=== PATIENT | female | born 1995 ===

== ENCOUNTER 2022-08-18 13:54 | Outpatient (REF) | payer OTHER, SELFPAY ==
[2022-08-19 12:32] LABS: BV Int Neg Control Negative (Negative); BV Int Pos Control Positive (Positive)
== END 2022-08-18 13:55 | disposition home or self-care (01) ==
LOC: HO.LNP 13:54
PROVIDERS: Visit Provider Internal Medicine
DX: N89.8 Other specified noninflammatory disorders of vagina (principal)
CPT/HCPCS: 87480; 87510; 87660

== ENCOUNTER 2022-12-28 13:48 | Outpatient (AMB) | payer BC, SELFPAY ==
--- NOTE | 2022-12-28 13:54 | MHC.OFFWIV ---
Intake Vital Signs 12/28/22 13:55 Height 5 ft 7 in Weight 133.526 kg BMI 46.1 BP 134/74 Blood Pressure Location Lt brachial Position Sitting Pulse 99 Pulse Source Pulse Oximeter Temp 98 F Temp Source Temporal Artery Scan Pulse Oximetry (%) 99 Oxygen Delivery Method Room Air Intake Visit Reasons: EP ?Cut LT hand Intake Note: Pt is here c/o cut on left pointer finger. Pt cut herself with a knife at work on 12/27/22 Patient Tobacco Use Status: Current someday Tobacco user Allergies No Known Allergies Allergy (Verified 12/28/22 13:54) Do you need a note to return to daycare/school/sports/work: No HPI HPI Comments History of Present Illness Details 1400 27-year-old female presents with laceration to left pointer finger, accidental, patient accidentally cut herself at work with a knife. UTD on tetanus. Denies numbness, tingling, difficulty moving fingers, fevers, chills. Physical exam with a 1 cm superficial linear laceration to the lateral aspect of left pointer finger. Full painless range of motion to all fingers bilaterally capillary refill less than 2 seconds. No wrist drop. Normal sensation distally. Likely simple laceration. Unlikely neurovascular compromise, threat to Limb. No signs of foreign body. Plan Dermabond. . Educated patient on diagnosis and treatment plan, answered all question, patient verbalizes understanding. At this time patient will be discharged home, advised to return with new or worsening symptoms. Educated on worrisome signs and symptoms and when to return. At this time I feel comfortable discharge home. [facility] Social History Patient Tobacco Use Status: Current someday Tobacco user Review of Systems Const Details: Constitutional : No Fever, No Chills, Cardiovascular : No Chest Pain, No SOB Respiratory : No Dyspnea Gastrointestinal : No abdominal pain Musculoskeletal : No Joint Swelling Skin : No rash, positive skin laceration Neuro : No Weakness, No Numbness Psych : No SI/HI All systems reviewed & are unremarkable except as noted in HPI and below Physical Exam Vital Signs: Last Vital Signs Temp 98 F 12/28/22 13:55 Pulse 99 12/28/22 13:55 BP 134/74 12/28/22 13:55 Pulse Ox 99 12/28/22 13:55 Oxygen Delivery Method Room Air 12/28/22 13:55 BMI result Body Mass Index 46.1 Vital signs stable Appearance: Alert.? Oriented X3.? No acute distress.? Head: Normocephalic, atraumatic, no step-offs or deformities Eyes: Pupils equal, round and reactive to light.? CVS: Normal heart rate and rhythm.? Pulses normal.? Respiratory: No respiratory distress.? Breath sounds normal.? Abdomen: Soft and nontender.? Skin: Skin warm and dry.? Normal skin color.? Normal skin turgor.?1 cm superficial linear laceration to the lateral aspect of left pointer finger. Full painless range of motion to all fingers bilaterally capillary refill less than 2 seconds. No wrist drop. Normal sensation distally. Extremities: No lower extremity edema.? No calf ttp. 5/5 strength to bilateral upper and lower extremities Neuro: Oriented X 3.? No motor deficit.? No sensory deficit. CN 2-12 intact Assessment & Plan Assessment & Plan (1) Laceration of finger: Code(s): S61.219A - Laceration without foreign body of unspecified finger without damage to nail, initial encounter (2) Work related injury: Code(s): Y99.0 - Civilian activity done for income or pay Plan Take your medications as prescribed. If you were prescribed antibiotics today, it is important that you take your medication to their entirety, do not skip any doses, do not finish them early. Follow-up with your primary care provider this week. Return to the emergency department with new or worsening symptoms. Such as fevers, chills, chest pain, shortness of breath, nausea, vomiting, dizziness, headache, vision changes, lethargy In case of emergency call 911 Coding Level of Care Code Est Pt Level 3 (62278) Diagnoses Laceration of finger S61.219A Work related injury Y99.0
[2022-12-28 13:55] VITALS: BP 134/74; PULSE 99; TEMP 36.6; O2SAT 99; BMI 46.1
== END 2022-12-28 14:20 | disposition home or self-care (01) ==
PROVIDERS: Visit Provider Physician Assistant
DX: S61.219A Laceration without foreign body of unspecified finger without damage to nail, initial encounter (principal); Y99.0 Civilian activity done for income or pay; Z04.2 Encounter for examination and observation following work accident
CPT/HCPCS: 99213

== ENCOUNTER 2023-02-03 08:30 | Outpatient (AMB) | payer BC, SELFPAY ==
--- NOTE | 2023-02-03 09:47 | MHC.OFFWIV ---
Intake Vital Signs 02/03/23 09:49 Height 5 ft 7 in Weight 288 lb 6 oz BMI 45.2 BP 140/80 H Blood Pressure Location Rt brachial Position Sitting Pulse 97 Pulse Source Pulse Oximeter Temp 97 F Temp Source Temporal Artery Scan Pulse Oximetry (%) 98 Oxygen Delivery Method Room Air Intake Visit Reasons: EP, cough, congestion [phone]) Intake Note: Pt is here c/o cough, congestion and body aches for the last three days. Patient Tobacco Use Status: Current someday Tobacco user Allergies No Known Allergies Allergy (Verified 02/03/23 09:47) Do you need a note to return to daycare/school/sports/work: Yes HPI HPI Comments History of Present Illness Details This is a 27-year-old female who presents to the office today for sick visit. Patient complaining of upper respiratory tract symptoms. She states she started to develop a sore throat, nasal congestion/rhinorrhea, headaches, and myalgias approximately 3 days ago. She states her symptoms started to improve but yesterday, she started to develop worsening symptoms with a cough with yellow-green sputum production and some mild shortness of breath. Patient has a history of childhood asthma and she has a rescue inhaler at home. She states she has rescue inhaler yesterday and has not had to use her rescue inhaler in years. She denies any fevers or chills. She denies any chest pain. She denies any abdominal pain or nausea/vomiting/diarrhea. She reports several sick contacts at work. [facility] Social History Patient Tobacco Use Status: Current someday Tobacco user Review of Systems Const All systems reviewed & are unremarkable except as noted in HPI and below Reports no additional complaints Eyes Reports no additional complaints ENT Reports no additional complaints Card Reports no additional complaints Resp Reports no additional complaints GI Reports no additional complaints Reports no additional complaints Musc Reports no additional complaints Skin/Breast Reports system reviewed and no additional complaints, except as documented Neuro Reports no additional complaints Psych Reports no additional complaints Endo Reports no additional complaints Manjinder/Lymph Reports no additional complaints Aller/Immun Reports no additional complaints Physical Exam Vital Signs: Last Vital Signs Temp 97 F 02/03/23 09:49 Pulse 97 02/03/23 09:49 BP 140/80 H 02/03/23 09:49 Pulse Ox 98 09/15/23 09:49 Oxygen Delivery Method Room Air 02/03/23 09:49 BMI result Body Mass Index 45.2 Const General: cooperative, healthy appearing, no acute distress and well developed Orientation/consciousness: patient oriented x3 HEENT Head: Yes normal to inspection Ears: hearing grossly normal bilaterally, TM's normal bilaterally and EAC's normal General nose exam: Normal external nose present Face and sinus: Yes normal facial exam Mouth: Normal oral and palatal mucosa present Throat: Yes uvula midline, No peritonsillar mass and Yes posterior oropharynx abnormal (Mild erythema) Eyes General: appearance normal, both eyes and all related structures Pupils: Equal, round and reactive pupils present EOM: EOMs intact bilaterally Resp Effort & Inspection: normal respiratory effort and no respiratory distress Auscultation: clear to auscultation bilaterally Cardio Rate: regular rate Rhythm: regular rhythm Heart sounds: no gallops, no murmurs and no rubs Peripheral pulses: Peripheral pulses 2+ throughout GI Inspection: No distended Palpation (GI): Soft to palpation and nontender Auscultation: normal bowel sounds Skin General skin exam: no rashes or lesions noted Neuro General: patient oriented x3 Cranial nerves: Yes CN's II-XII intact bilaterally and Yes Equal, round and reactive pupils present Gait exam (Neuro): Normal gait present Motor exam (neuro): 5/5 motor strength present throughout Extrem General: Yes normal to inspection, Yes full ROM and Yes no clubbing, cyanosis or edema Psych Appearance: grossly normal Mental Status: mental status grossly normal Assessment & Plan Assessment & Plan (1) URI (upper respiratory infection): Code(s): J06.9 - Acute upper respiratory infection, unspecified Plan: This is a 27-year-old female presenting to the office complaining of a cough with sputum production and mild shortness of breath in the setting of worsening URI symptoms. On physical examination, her vital signs are hemodynamically stable, she has no adventitious breath sounds, and she is overall nontoxic appearing. She does have mild pharyngeal erythema but no unilateral edema or peritonsillar mass. Her history and physical are most consistent with a viral upper respiratory tract infection possibly causing acute asthmatic bronchitis. This is likely a self-limiting illness; however, given that patient has had to use her rescue inhaler for the 1st time in years and has been having a productive cough, we will treat with p.o. azithromycin 500 mg today followed by 250 mg daily x4 days as well as p.o. prednisone 40 mg daily x5 days. Patient was sent for chest x-ray to evaluate for pneumonia. Recommended symptomatic management including rest, increased fluids, advil/tylenol for pain/fever, and over the counter throat lozenges/decongestants. Patient advised to follow up here or go to the emergency room for worsening/persistent symptoms. Patient verbalized understanding and is agreeable with the plan. Orders: Orders XR chest 2V Today R05.9 - Cough, unspecified SARS-CoV2/FLU/RSV Today J06.9 - Acute upper respiratory infection, unspecified Medications: New azithromycin For 250 mg dose pack: take 500 mg today (day 1), then 250 mg for 4 days (days 2-5) PO 6 tabs 0RF prednisone 40 mg (2 x 20 mg) PO DAILY 10 tabs 0RF Coding Level of Care Code Est Pt Level 3 (10697) Diagnoses URI (upper respiratory infection) J06.9
[2023-02-03 09:49] VITALS: BP 140/80; PULSE 97; TEMP 36.1; O2SAT 98; BMI 45.2
== END 2023-02-03 10:25 | disposition home or self-care (01) ==
PROVIDERS: Visit Provider Physician Assistant Medical
DX: J06.9 Acute upper respiratory infection, unspecified (principal)
CPT/HCPCS: 99213

== ENCOUNTER 2023-02-03 10:13 | Outpatient (REF) | payer BC, SELFPAY ==
--- NOTE | ~2023-02-03 | XR_ITS ---
EXAMINATION: XR CHEST CLINICAL INFORMATION: Cough. COMPARISON: None available. TECHNIQUE: 2 views of the chest were obtained. FINDINGS: The lungs are well expanded. No focal consolidation. No pleural effusion. Cardiac silhouette is within normal limits. XR/XR chest 2V IMPRESSION: No acute abnormality.
[2023-02-03 15:08] LABS: Influenza A PCR NEGATIVE (Negative); Influenza B PCR NEGATIVE (Negative); Resp Syncy Virus RNA Qual PCR NEGATIVE (Negative); SARS COV2 PCR INHOUSE NEGATIVE (Negative)
== END 2023-02-03 10:14 | disposition home or self-care (01) ==
LOC: HO.HMGCX 10:13
PROVIDERS: Visit Provider Physician Assistant Medical
DX: R05.9 Cough, unspecified (principal); J06.9 Acute upper respiratory infection, unspecified; Z20.822 Contact with and (suspected) exposure to COVID-19
CPT/HCPCS: 0241U; 71046

== ENCOUNTER 2024-06-18 08:38 | Outpatient (REF) | payer BC, SELFPAY ==
--- OUTSIDE RECORDS SUMMARY | 2024-06-18 14:10 | XMS_ITS | Clinical Summary ---
Author Organization [facility] Address [address] [place] [address] Care Team Providers Care Bearing Inspector Name Role Phone Unavailable Primary Care Provider [...]
[2024-06-18 16:01] LABS: Influenza A PCR POSITIVE (Negative); Influenza B PCR NEGATIVE (Negative); Resp Syncy Virus RNA Qual PCR NEGATIVE (Negative); SARS COV2 PCR INHOUSE NEGATIVE (Negative)
== END 2024-06-18 08:39 | disposition home or self-care (01) ==
LOC: HO.LNP 08:38
PROVIDERS: PCP Nurse Practitioner Family; Visit Provider Physician Assistant
DX: J06.9 Acute upper respiratory infection, unspecified (principal)
CPT/HCPCS: 0241U; 87880

== ENCOUNTER 2024-06-18 08:38 | Outpatient (AMB) | payer BC, SELFPAY ==
--- OUTSIDE RECORDS SUMMARY | 2024-06-18 08:57 | XMS_ITS | Clinical Summary ---
Author Organization [facility] Address [address] [place] [address] Care Team Providers Care Crawler Tractor Operator Name Role Phone Unavailable Primary Care Provider Unavailabl e Allergies No known active allergies Medications No known medications Social History Tobacco Use Types Packs/Day Years Used Date Smoking Tobacco: Never Sex and Gender Information Value Date Recorded Sex Assigned at Not on file Gender Identity Not on file Sexual Orientation Not on file Last Filed Vital Signs Vital Sign Reading Time Taken Comments Blood Pressure 149/83 10/06/2015 6:34 PM EDT Pulse 78 10/06/2015 6:34 PM EDT Temperature 36.7 ??C (98 ??F) 10/06/2015 6:34 PM EDT Respiratory Rate 18 10/06/2015 6:34 PM EDT Oxygen Saturation 98% 10/06/2015 6:34 PM EDT Inhaled Oxygen Concentration - - Weight 81.6 kg (180 lb) 10/06/2015 6:34 PM EDT Height 167.6 cm (5' 6 ) 10/06/2015 6:34 PM EDT Body Mass Index 29.05 10/06/2015 6:34 PM EDT Plan of Treatment Not on file
--- OUTSIDE RECORDS SUMMARY | 2024-06-18 08:58 | XMS_ITS | Patient Health Record ---
Author Organization [facility] Address [address] [address] Care Team Providers Care Registered Nurse First Assistant Name Role Phone FLORES SAM Unavailable [phone] Reason For Referral No Information Plan Of Treatment No Information Insurance Providers Payer Name Payer Address Payer Phone Subscriber Number Group Number Insured Name Patient Relationship to Insured Coverage Start Date Coverage End Date [employer] [place] [address] [place] [address] PEARL LOYA Self - patient is the insured
--- NOTE | 2024-06-18 09:31 | AM.OFFWIN_ITS ---
Intake Vital Signs 06/18/24 09:33 Height 5 ft 6 in Weight 288 lb BMI 46.5 BP 140/90 H Blood Pressure Location Lt brachial Position Sitting Pulse 103 H Pulse Source Pulse Oximeter Temp 98.4 F Temp Source Oral Pulse Oximetry (%) 98 Oxygen Delivery Method Room Air Intake Visit Reasons: EP-sore throat, headaches, body ache, nausea Intake Note: Patient here for nausea, fatigued, sore throat, chest congestion, body aches and bilat ear pain that started yesterday. Patient Tobacco Use Status: Current someday Tobacco user Allergies No Known Allergies Allergy (Verified 06/18/24 09:34) Do you need a note to return to daycare/school/sports/work: Yes HPI HPI Comments History of Present Illness Details This is a 28-year-old female with no stated past medical history presenting for evaluation of nausea, fatigue, fever, headache and myalgias that started at 11:00 a.m. yesterday. Patient has been taking ibuprofen and Mucinex for treatment of her symptoms. Patient is not aware of any sick contacts but left work early secondary to her symptoms yesterday. [facility] Social History Patient Tobacco Use Status: Current someday Tobacco user Review of Systems Const All systems reviewed & are unremarkable except as noted in HPI and below Reports no additional complaints Eyes Reports no additional complaints ENT Reports no additional complaints Card Reports no additional complaints Resp Reports no additional complaints GI Reports no additional complaints Reports no additional complaints and Reports as per HPI Musc Reports no additional complaints and Reports as per HPI Skin/Breast Reports system reviewed and no additional complaints, except as documented Neuro Reports no additional complaints Psych Reports no additional complaints Endo Reports no additional complaints Manjinder/Lymph Reports no additional complaints Aller/Immun Reports no additional complaints Physical Exam Vital Signs: Last Vital Signs Temp 98.4 F 06/18/24 09:33 Pulse 103 H 06/18/24 09:33 BP 140/90 H 06/18/24 09:33 Pulse Ox 98 06/18/24 09:33 Oxygen Delivery Method Room Air 06/18/24 09:33 BMI result Body Mass Index 46.5 Const General: cooperative, comfortable, no acute distress, well developed, alert, awake and Physically active; No acute distress or lethargic Nutritional Appearance: overweight Orientation/consciousness: patient oriented x3 and No lethargic Limitations: no limitations HEENT Head: Yes normal to inspection and Yes normocephalic Ears: hearing grossly normal bilaterally, external ears normal, TM's normal bilaterally and EAC's normal General nose exam: Normal external nose present Face and sinus: Yes normal facial exam and Yes sinuses nontender Mouth: Normal oral and palatal mucosa present Throat: Yes posterior oropharynx normal and Yes postnasal drainage Eyes General: appearance normal, both eyes and all related structures Neck Lymphatic: no lymphadenopathy noted Resp Effort & Inspection: normal respiratory effort, able to speak in complete sentences, no audible wheezes, no cough, no respiratory distress and not tachypneic Auscultation: clear to auscultation bilaterally Cardio Rate: regular rate Rhythm: regular rhythm Skin General skin exam: no rashes or lesions noted Neuro General: patient oriented x3 Psych Appearance: grossly normal Mental Status: mental status grossly normal Insight: Good insight present (Psych) Judgement: Good judgement present (Psych) Results AMB Rapid Strep AMB Rapid Strep Negative Last Edit by SUDEEP Jack on 06/18/24 09:47 Assessment & Plan Assessment & Plan (1) Acute upper respiratory infection: Comment: SARS panel is ordered and results are pending. Anticipate treating with Tamiflu if positive for influenza. Code(s): J06.9 - Acute upper respiratory infection, unspecified Plan: Tylenol or ibuprofen for fever and myalgias, Mucinex as needed for cough. Increase clear fluids daily. Orders: Orders SARS-CoV2/FLU/RSV Today J06.9 - Acute upper respiratory infection, unspecified AMB Rapid Strep Screen Today Z13.9 - Encounter for screening, unspecified Coding Level of Care Code Est Pt Level 3 (96860) Diagnoses Acute upper respiratory infection J06.9 Time Spent (min) 20
[2024-06-18 09:33] VITALS: BP 140/90; PULSE 103; TEMP 36.9; O2SAT 98; BMI 46.5
== END 2024-06-18 09:54 | disposition home or self-care (01) ==
PROVIDERS: PCP Nurse Practitioner Family; Visit Provider Physician Assistant
DX: Z13.9 Encounter for screening, unspecified (principal); J06.9 Acute upper respiratory infection, unspecified

== ENCOUNTER 2024-11-13 15:45 | Outpatient (REF) | payer BC, SELFPAY ==
[2024-11-14 11:26] LABS: Influenza A PCR NEGATIVE (Negative); Influenza B PCR NEGATIVE (Negative); Resp Syncy Virus RNA Qual PCR NEGATIVE (Negative); SARS COV2 PCR INHOUSE NEGATIVE (Negative)
--- OUTSIDE RECORDS SUMMARY | 2024-11-14 12:24 | XMS_ITS | Clinical Summary ---
Author Organization [facility] Address [address] [place] [address] Care Team Providers Care Vibration Analyst Name Role Phone Unavailable Primary Care Provider [...]
== END 2024-11-13 15:46 | disposition home or self-care (01) ==
LOC: HO.LNP 15:45
PROVIDERS: PCP Nurse Practitioner Family; Visit Provider Physician Assistant Medical
DX: J06.9 Acute upper respiratory infection, unspecified (principal); R09.89 Other specified symptoms and signs involving the circulatory and respiratory systems
CPT/HCPCS: 0241U; 87880

== ENCOUNTER 2024-11-13 15:45 | Outpatient (AMB) | payer BC, SELFPAY ==
--- NOTE | 2024-11-13 15:50 | MHC.OFFWIV ---
Intake Vital Signs 11/13/24 15:51 Height 5 ft 6 in Weight 291 lb 6 oz BMI 47.0 BP 146/82 H Blood Pressure Location Rt brachial Position Sitting Pulse 84 Pulse Source Pulse Oximeter Temp 98.5 F Temp Source Oral Pulse Oximetry (%) 98 Oxygen Delivery Method Room Air Intake Visit Reasons: EP sore throat, running nose, ear ache Intake Note: Patient present sore throat and runny nose times 2 days, today is the start of an ear ache bilateral Patient Tobacco Use Status: Current someday Tobacco user Grassroots Organizer Required: No Is last menstrual period known: Yes Post menopausal: No Patient : No Allergies No Known Allergies Allergy (Verified 11/13/24 15:59) Do you need a note to return to daycare/school/sports/work: No HPI HPI Comments History of Present Illness Details History - The patient is a 29-year-old female presenting with symptoms of a runny nose, sore throat, ear pain, and general malaise. - Symptoms began a few days ago with a runny nose and sore throat, progressing to ear pain and general malaise. - The patient has not taken any medication for these symptoms yet. - No other household members are reported to be sick. - The patient has a history of asthma, which was more prominent when living in the city. - The patient received the influenza vaccine this year. - Additional symptoms include a mild sore throat, cough, congestion, and a runny nose, with occasional diarrhea. - She denies sick contacts or travel - Has not smoked in 2 days due to her symptoms - She denies fever, chills, CP, SOB, abd pain, n/v/d, AGUILAR, dizziness, or weakness. Physical Exam General: Cooperative, healthy appearing, comfortable and no acute distress Orientation/consciousness: Patient oriented x3 Head: Normal to inspection Ears: Hearing grossly normal bilaterally, external ears normal and TM's normal bilaterally Nose: Normal external nose present, normal nares present, and no nasal discharge present. Face and sinus: Sinuses nontender to palpation. Mouth: Normal oral and palatal mucosa present and moist mucous membranes noted. Throat: Tonsils normal. Uvula is midline. Posterior oropharynx with erythema and no exudates. Eyes: Appearance normal, both eyes and all related structures Neck: Normal visual inspection, full ROM. No lymphadenopathy noted. Respiratory: Clear to auscultation bilaterally. Normal respiratory effort, able to speak in complete sentences. No respiratory distress, not tachypneic, no tripod positioning and no use of accessory muscles. Cardiovascular: Regular rate and rhythm. Normal S1 and S2 Skin: No rashes or lesions noted Patient was informed and verbally consented to the use of an ambient scribe for clinic note documentation during this visit [facility] Social History Patient Tobacco Use Status: Current someday Tobacco user Patient : No Review of Systems Const All systems reviewed & are unremarkable except as noted in HPI and below Physical Exam Vital Signs: Last Vital Signs Temp 98.5 F 11/13/24 15:51 Pulse 84 11/13/24 15:51 BP 146/82 H 11/13/24 15:51 Pulse Ox 98 11/13/24 15:51 Oxygen Delivery Method Room Air 11/13/24 15:51 BMI result Body Mass Index 47.0 Results AMB Rapid Strep AMB Rapid Strep Negative Last Edit by José Antonio Berg CMA on 11/13/24 16:13 Assessment & Plan Assessment & Plan (1) Upper respiratory tract infection: Code(s): J06.9 - Acute upper respiratory infection, unspecified Qualifiers: URI type: unspecified viral URI Qualified Code(s): J06.9 - Acute upper respiratory infection, unspecified Plan Most likely URI vs viral illness vs strep vs covid vs flu Rapid is negative in the office Plan - Conducted throat culture and flu swab to test for COVID-19, influenza, and RSV. - Recommended symptomatic treatment with Tylenol or Motrin for comfort. - Advised home remedies such as lemon and teas for symptom relief. - Will contact the patient with test results. - VSS, pt well appearing - Diet as tolerated - follow up with PCP Orders: Orders AMB Rapid Strep Screen Today Z13.9 - Encounter for screening, unspecified SARS-CoV2/FLU/RSV Today R09.89 - Other specified symptoms and signs involving the circulatory and respiratory systems Medications: New fluticasone propionate 50 mcg/actuation administer into each nostril 1 spray intranasal Q12H 16 grams 0RF benzonatate 100 mg PO bid-tid PRN 21 caps 0RF Cough 7 days Coding Level of Care Code Est Pt Level 3 (47581) Diagnoses Viral upper respiratory tract infection J06.9 URI type: unspecified viral URI
[2024-11-13 15:51] VITALS: BP 146/82; PULSE 84; TEMP 36.9; O2SAT 98; BMI 47.0
--- OUTSIDE RECORDS SUMMARY | 2024-11-13 18:30 | XMS_ITS | Clinical Summary ---
Author Organization [facility] Address [address] [place] [address] Care Team Providers Care Porcelain Enameler Name Role Phone Unavailable Primary Care Provider [...] 78 10/06/2015 6:34 PM EDT Temperature 36.7 C (98 F) 10/06/2015 6:34 PM EDT Respiratory Rate 18 10/06/2015 6:34 PM EDT Oxygen Saturation 98% 10/06/2015 6:34 PM EDT Inhaled Oxygen Concentration - - Weight 81.6 kg (180 lb) 10/06/2015 6:34 PM EDT Height 167.6 cm (5' 6 ) 10/06/2015 6:34 PM EDT Body Mass Index 29.05 10/06/2015 6:34 PM EDT Plan of Treatment Not on file
== END 2024-11-13 16:14 | disposition home or self-care (01) ==
PROVIDERS: PCP Nurse Practitioner Family; Visit Provider Physician Assistant Medical
DX: J06.9 Acute upper respiratory infection, unspecified (principal)